=== PATIENT | female | born 1975 | race Caucasian/White ===

== ENCOUNTER 2021-04-30 19:10 | Emergency (ER) | payer MEDICAID ==
[~2021-04-30] VITALS: Ht 160 cm; Wt 86.2 kg
[~2021-04-30 19:10] MED LIST: CIPR-260 PO; DIF100 PO; IMI50 PO; METH4TAB3 PO; ONDA4TAB22 PO; TOP25 PO; TOPI100T11 PO
[2021-04-30 19:16] VITALS: BP_SYST 139
[2021-04-30] MEDS ORDERED: PANTOPRAZOLE SODIUM 40 MG/VIAL (PROTONIX) IVP ONE (20:45)
[2021-04-30] MEDS ORDERED: NACL 0.9% 1,000 ML IV ONE (20:45)
[2021-04-30] MEDS ORDERED: METOCLOPRAMIDE HCL 10 MG/2 ML VIAL IVP ONE ×2 (20:45→22:15)
[2021-04-30] MEDS ORDERED: DIPHENHYDRAMINE INJ 50 MG/ML VIAL IVP ONE (20:45)
[2021-04-30 21:18] LABS: CALCIUM 9.1 mg/dL (8.4-11.0); CREATININE 0.81 mg/dL (0.55-1.30); POTASSIUM 3.3 mmol/L (3.5-5.1)
[2021-04-30 21:23] LABS: BASOPHILS % (AUTO) 0.5 % (0.0-2.0); EOSINOPHILS # (AUTO) 0.1 K/uL (0.0-0.4); EOSINOPHILS % (AUTO) 0.7 % (0.0-4.0); HEMATOCRIT 36.1 % (36-48); HEMOGLOBIN 11.7 g/dL (12.0-16.0); LYMPHOCYTES # (AUTO) 1.9 K/uL (1.0-5.5); LYMPHOCYTES % (AUTO) 22.6 % (20.5-51.5); MEAN CORPUSCULAR HEMOGLOBIN 24 pg (27-31); MEAN CORPUSCULAR HGB CONC 33 % (32-36); MEAN CORPUSCULAR VOLUME 74 fL (79.0-98.0); MONOCYTES # (AUTO) 0.7 K/uL (0.0-1.0); NEUTROPHILS # (AUTO) 5.7 K/uL (1.8-7.7); NEUTROPHILS % (AUTO) 68.2 % (40.0-70.0); PLATELET COUNT (AUTO) 295 K/uL (130-430); RED BLOOD CELL COUNT(AUTO) 4.91 MIL/uL (4.2-6.2); RED CELL DISTRIBUTION WIDTH 17.4 % (9.0-15.0); WHITE BLOOD COUNT (AUTO) 8.3 K/uL (4.8-10.8)
[2021-05-01 00:05] VITALS: BP_SYST 120
== END 2021-05-01 00:05 | disposition home or self-care (01) ==
LOC: SED 19:10
DX: R51.9 Headache, unspecified (principal); E86.0 Dehydration; R11.2 Nausea with vomiting, unspecified; Z79.899 Other long term (current) drug therapy
CPT/HCPCS: 36415; 80048; 85025; 96361; 96374; 96375; 96376; 99284; C9113; J1200; J2765; J7030

== ENCOUNTER 2021-07-07 11:17 | Emergency (ER) | payer MEDICAID ==
[~2021-07-07] VITALS: Ht 157.5 cm; Wt 87.1 kg
[2021-07-07 11:33] VITALS: BP_SYST 156
--- NOTE | 2021-07-07 11:43 | NUR ---
Patient to ER bed 4 to gown for evaluation. Side rails up. Report given to Lainey pacheco.
--- NOTE | 2021-07-07 11:43 | NUR ---
RECEIVED AND IN ROOM 4, HERE FOR C/O LT THUMB LACERATION FROM OPENING CAN
--- NOTE | 2021-07-07 12:11 | NUR ---
DR PALMA IN TO ASSESS
[2021-07-07] MEDS ORDERED: DIPH-TET-PERTUS Vaccine 0.5 ML VIAL (ADACEL) I.M. ONE (12:15)
[2021-07-07] MEDS ORDERED: ACETAMINOPHEN 325 MG TABLET PO ONE (12:15)
--- NOTE | 2021-07-07 12:22 | NUR ---
STERI STRIPS, SITE WELL APPROXIMATED, ACI PROVIDED,COMMUNICATED UNDERSTANDING
[2021-07-07 12:36] VITALS: BP_SYST 141
--- NOTE | 2021-07-07 12:37 | NUR ---
Patient given written and verbal discharge instructions and verbalizes understanding. ER MD discussed with patient the results and treatment provided. Patient in stable condition. ID arm band removed. Patient educated on pain management and to follow up with PMD. Pain Scale 0/10 Opportunity for questions provided and answered. Medication side effect fact sheet provided.
== END 2021-07-07 12:36 | disposition home or self-care (01) ==
LOC: SED 11:17
DX: S61.012A Laceration without foreign body of left thumb without damage to nail, initial encounter (principal); W45.8XXA Other foreign body or object entering through skin, initial encounter; Y93.89 Activity, other specified; Y92.89 Other specified places as the place of occurrence of the external cause; Y99.8 Other external cause status
CPT/HCPCS: 90715; 99283